=== PATIENT | female | born 1985 | race Caucasian/White ===

== ENCOUNTER 2020-10-11 13:04 | Emergency (ER) | payer OTHER ==
[2020-10-11] MEDS ORDERED: diphenhydrAMINE 50 MG/ML SDV IVPUSH ONE (13:26)
[2020-10-11] MEDS ORDERED: Prochlorperazine 10 MG/2 ML SDV IVPUSH ONE (13:26)
[2020-10-11] MEDS ORDERED: Ketorolac 30 MG/ML SDV IVPUSH ONE (13:26)
[2020-10-11] MEDS ORDERED: Sodium Chloride 0.9% 10 ML Syringe FLUSH PRN (13:26)
--- NOTE | 2020-10-11 13:42 | EDM.PDOC ---
ED HPI GENERAL MEDICAL PROBLEM - General Chief Complaint: Headache Stated Complaint: MIGRAINE X 1 DAY Time Seen by Provider: 10/11/20 13:18 Source of Information: Reports: Patient History Limitations: Reports: No Limitations - History of Present Illness INITIAL COMMENTS - FREE TEXT/NARRATIVE: The patient presents with a headache. She has a history of migraines. This started on Monday and has not gotten any better. She says it has been awhile since her headache has been this bad. She has some nausea. She has no fever, chills, cough, chest pain, shortness of breath, abdominal pain, numbness or weakness. Onset: Gradual Duration: Day(s): Location: Reports: Head Quality: Reports: Sharp Severity: Severe Improves with: Reports: None Worsens with: Reports: None Associated Symptoms: Reports: Headaches, Nausea/Vomiting. Denies: Chest Pain, Cough, Fever/Chills, Shortness of Breath Headache Pain Score (Numeric/FACES): 6 - Related Data Allergies Allergy/AdvReac Type Severity Reaction Status Date / Time No Known Allergies Allergy Verified 10/11/20 13:16 Home Meds: Home Meds . [No Known Home Meds] 10/11/20 [History] Past Medical History - Past Health History Medical/Surgical History: Denies Medical/Surgical History Social & Family History - Tobacco Use Tobacco Use Status *Q: Never Tobacco User Second Hand Smoke Exposure: No - Caffeine Use Caffeine Use: Reports: Coffee, Soda - Recreational Drug Use Recreational Drug Use: No ED ROS GENERAL - Review of Systems Review Of Systems: See Below Constitutional: Reports: No Symptoms HEENT: Reports: No Symptoms Respiratory: Reports: No Symptoms Cardiovascular: Reports: No Symptoms Endocrine: Reports: No Symptoms GI/Abdominal: Reports: Nausea. Denies: Abdominal Pain, Vomiting : Reports: No Symptoms Musculoskeletal: Reports: No Symptoms Skin: Reports: No Symptoms Neurological: Reports: Headache - Physical Exam Exam: See Below Exam Limited By: No Limitations General Appearance: Alert, No Apparent Distress Ears: Normal External Exam Nose: Normal Inspection Head Exam: Atraumatic, Normocephalic Neck: Normal Inspection Respiratory/Chest: No Respiratory Distress, Lungs Clear, Normal Breath Sounds Cardiovascular: Regular Rate, Rhythm, No Edema, No Murmur GI/Abdominal: Soft, Non-Tender, No Organomegaly, No Mass Neuro Exam (Abbreviated): Alert, Oriented, No Motor/Sensory Deficits Course - Vital Signs Last Recorded V/S: Last Vital Signs Temp 97.0 F 10/11/20 13:15 Pulse 72 10/11/20 13:15 Resp 20 10/11/20 13:15 BP 152/86 H 10/11/20 13:15 Pulse Ox 99 10/11/20 13:15 - Orders/Labs/Meds Orders: Active Orders 24 hr Category Date Time Status Peripheral IV Care [RC] . DIRECTED Care 10/11/20 13:26 Active Sodium Chloride 0.9% [Saline Flush] Med 10/11/20 13:26 Active 10 ml FLUSH ASDIRECTED PRN Peripheral IV Insertion Adult [OM.PC] Routine Oth 10/11/20 13:26 Ordered Medication Orders Sodium Chloride (Sodium Chloride 0.9% 10 Ml Syringe) 10 ml FLUSH ASDIRECTED PRN PRN Reason: Keep Vein Open Last Admin: 10/11/20 13:33 Dose: 10 ml Documented by: CHRIS Meds: Medications Generic Name Dose Route Start Last Admin Trade Name Freq PRN Reason Stop Dose Admin Sodium Chloride 10 ml 10/11/20 13:26 10/11/20 13:33 Sodium Chloride 0.9% 10 Ml Syringe FLUSH 10 ml ASDIRECTED PRN Administration Keep Vein Open Discontinued Medications Generic Name Dose Route Start Last Admin Trade Name Freq PRN Reason Stop Dose Admin Diphenhydramine HCl 50 mg 10/11/20 13:26 10/11/20 13:33 Diphenhydramine 50 Mg/Ml Sdv IVPUSH 10/11/20 13:27 50 mg ONETIME ONE Administration Ketorolac Tromethamine 30 mg 10/11/20 13:26 10/11/20 13:33 Ketorolac 30 Mg/Ml Sdv IVPUSH 10/11/20 13:27 30 mg ONETIME ONE Administration Prochlorperazine Edisylate 10 mg 10/11/20 13:26 10/11/20 13:33 Prochlorperazine 10 Mg/2 Ml Sdv IVPUSH 10/11/20 13:27 10 mg ONETIME ONE Administration - Re-Assessments/Exams Free Text/Narrative Re-Assessment/Exam: 10/11/20 13:43 I ordered an IV saline lock, compazine 10mg IV, toradol 30mg IV and benadryl 50mg IV. 10/11/20 14:51 She feels better. I will discharge her home. Departure - Departure Time of Disposition: 14:55 Disposition: Home, Self-Care 01 Condition: Good Clinical Impression: Migraine - Discharge Information *PRESCRIPTION DRUG MONITORING PROGRAM REVIEWED*: Not Applicable *COPY OF PRESCRIPTION DRUG MONITORING REPORT IN PATIENT ANDREW: Not Applicable Referrals: PCP,None [Primary Care Provider] - Forms: ED Department Discharge Additional Instructions: Go home and rest. Take tylenol or motrin as needed for pain. Please return if you are worse. Sepsis Event Note (ED) - Evaluation Sepsis Screening Result: No Definite Risk - Focused Exam Vital Signs: Vital Signs Temp Pulse Resp BP Pulse Ox 10/11/20 13:15 97.0 F 72 20 152/86 H 99 - My Orders Last 24 Hours: My Active Orders 10/11/20 13:26 Peripheral IV Care [RC] . DIRECTED Sodium Chloride 0.9% [Saline Flush] 10 ml FLUSH ASDIRECTED PRN Peripheral IV Insertion Adult [OM.PC] Routine - Assessment/Plan Last 24 Hours: My Active Orders 10/11/20 13:26 Peripheral IV Care [RC] . DIRECTED Sodium Chloride 0.9% [Saline Flush] 10 ml FLUSH ASDIRECTED PRN Peripheral IV Insertion Adult [OM.PC] Routine
== END 2020-10-11 15:07 | disposition home or self-care (01) ==
LOC: JD.ED 13:04
DX: G43.909 Migraine, unspecified, not intractable, without status migrainosus (principal)
CPT/HCPCS: 96374; 96375; 99283; J0780; J1200; J1885

== ENCOUNTER 2021-12-28 07:10 | Inpatient (IN) | payer OTHER ==
[~2021-12-28 07:10] MED LIST: Bupivacaine 0.25% 10 ML SDV ONE
[2021-12-28] MEDS ORDERED: Sodium Chloride 0.9% 10 ML Syringe FLUSH PRN (07:13)
[2021-12-28] MEDS ORDERED: Ondansetron 4 MG/2 ML SDV IVPUSH PRN (07:13)
[2021-12-28] MEDS ORDERED: Nalbuphine HCl 10 MG/ 1ML Amp IVPUSH PRN (07:13)
[2021-12-28] MEDS ORDERED: Oxytocin/Lactated Ringers 10 UNIT/1,000 ML BAG IV SCH ×2 (07:15)
[2021-12-28] MEDS ORDERED: Ampicillin 2 GM in Sodium Chloride 0.9% 100 ML IV ONE (08:00)
[2021-12-28] MEDS: Lactated Ringers 1,000 ML IV SCH ×5 (08:04→20:00)
[2021-12-28] MEDS ORDERED: Sodium Chloride 0.9% 10 ML Syringe FLUSH SCH (09:00)
[2021-12-28] MEDS: Ampicillin 1 GM in Sodium Chloride 0.9% 100 ML IV SCH ×3 (12:07→19:58)
[2021-12-28] MEDS ORDERED: fentaNYL 100 MCG/2 ML SDV EPIDUR PRN (14:02)
[2021-12-28] MEDS ORDERED: diphenhydrAMINE 50 MG/ML SDV IVPUSH PRN (14:02)
[2021-12-28] MEDS ORDERED: ePHEDrine 50 MG/ML SDV IVPUSH PRN (14:02)
[2021-12-28] MEDS ORDERED: Bupivacaine/fentaNYL/NS 100 ML Bag EPIDUR PRN (14:02)
[2021-12-28] MEDS ORDERED: Benzocaine/Menthol 20%-0.5% Spray 78 GM Cannister TOP PRN (22:28)
[2021-12-28] MEDS ORDERED: Docusate Sodium 100 MG Cap PO PRN (22:28)
[2021-12-28] MEDS ORDERED: Witch Hazel Medicated Pads 40/Jar TOP PRN (22:28)
[2021-12-28] MEDS: Ibuprofen 600 MG Tab PO PRN (22:44)
[2021-12-29] MEDS: Acetaminophen 325 MG Tab PO PRN ×2 (02:27→17:51)
[2021-12-29] MEDS: Ibuprofen 600 MG Tab PO PRN ×2 (07:51→17:05)
[2021-12-30] MEDS: Ibuprofen 600 MG Tab PO PRN (02:40)
[2021-12-30] MEDS: Acetaminophen 325 MG Tab PO PRN (02:41)
[2021-12-30] MEDS ORDERED: Measles, Mumps & Rubella Vaccine 0.5 ML SDV SUBCUT ONE (09:00)
== END 2021-12-30 11:32 | disposition home or self-care (01) | DRG 807 ==
LOC: JD.OBCHECK 07:10 → JD.OB 07:13 → JD.OBCHECK 07:14 → OBSVTOIN 21:04 → JD.OB 21:05
PROVIDERS: ADMIT Obstetrics & Gynecology; ATTEND Obstetrics & Gynecology
PROC: 10E0XZZ Delivery of Products of Conception, External Approach (ICD-10-PCS; principal; 2021-12-28)
PROC: 0KQM0ZZ Repair Perineum Muscle, Open Approach (ICD-10-PCS; 2021-12-28)
PROC: 10907ZC Drainage of Amniotic Fluid, Therapeutic from Products of Conception, Via Natural or Artificial Opening (ICD-10-PCS; 2021-12-28)
PROC: 3E033VJ Introduction of Other Hormone into Peripheral Vein, Percutaneous Approach (ICD-10-PCS; 2021-12-28)
PROC: 3E0234Z Introduction of Serum, Toxoid and Vaccine into Muscle, Percutaneous Approach (ICD-10-PCS; 2021-12-30)
DX: O99.824 Streptococcus B carrier state complicating childbirth (principal); Z37.0 Single live birth; O70.1 Second degree perineal laceration during delivery; Z3A.39 39 weeks gestation of pregnancy; Z23 Encounter for immunization
CPT/HCPCS: 36415; 51702; 59025; 59409; 85027; 86592; 86850; 86900; 86901; 90707; A9270-GY; J0290; J2405; J2590; J3010; J3490; J7120

== ENCOUNTER 2024-08-26 05:01 | Inpatient (IN) | payer OTHER ==
[~2024-08-26 05:01] MED LIST changes: -Bupivacaine 0.25% 10 ML SDV ONE; +Sodium Chloride 0.9% 10 ML Syringe FLUSH PRN
[2024-08-26 06:03] LABS: BASOPHILS PERCENT AUTO 0.3 % (0.0-1.0); EOSINOPHILS ABSOLUTE AUTO 0.1 K/mm3 (0.0-0.4); EOSINOPHILS PERCENT AUTO 0.8 % (0.0-6.0); HEMATOCRIT 34.9 % (37.0-47.0); HEMOGLOBIN 11.7 gm/dl (12.0-16.0); IMMATURE GRAN PERCENT AUTO 1.9 % (0.0-0.4); LYMPHOCYTES ABSOLUTE AUTO 2.5 K/mm3 (1.0-4.8); LYMPHOCYTES PERCENT AUTO 23.2 % (24.0-44.0); MEAN CORPUSCULAR HEMOGLOBIN 30.4 pg (28.0-32.0); MEAN CORPUSCULAR HGB CONC 33.5 g/dl (32.0-36.0); MEAN CORPUSCULAR VOLUME 90.6 fl (83.0-99.0); MEAN PLATELET VOLUME 9.3 fl (9.4-12.3); MONOCYTES ABSOLUTE AUTO 0.9 K/mm3 (0.0-0.8); MONOCYTES PERCENT AUTO 8.6 % (0.0-8.0); NEUTROPHILS PERCENT AUTO 65.2 % (41.0-71.0); PLATELET COUNT,PLT 369 K/mm3 (150-400); RED BLOOD CELL COUNT 3.85 M/mm3 (4.10-5.30); WHITE BLOOD CELL COUNT,WBC 10.77 K/mm3 (3.9-11.3)
[2024-08-26] MEDS: Lactated Ringers 1,000 ML IV SCH ×2 (06:40→07:11)
[2024-08-26] MEDS ORDERED: Ketorolac 30 MG/ML SDV ONE (06:54)
[2024-08-26] MEDS ORDERED: fentaNYL 100 MCG/2 ML SDV ONE (06:54)
[2024-08-26] MEDS ORDERED: Ondansetron 4 MG/2 ML SDV ONE (06:54)
[2024-08-26] MEDS ORDERED: Morphine PF 10 MG/10 ML SDV ONE (06:54)
[2024-08-26] MEDS ORDERED: Ropivacaine 0.5% 5 MG/ML 30 ML SDV ONE ×2 (06:54→06:55)
[2024-08-26] MEDS ORDERED: Oxytocin 10 Units/1 ML SDV ONE (06:54)
[2024-08-26] MEDS ORDERED: ceFAZolin 2 GM Vial ONE (06:55)
[2024-08-26] MEDS ORDERED: EPINEPHrine 1 MG/ML SDV ONE (06:58)
[2024-08-26] MEDS ORDERED: Bupivacaine 0.25% 10 ML SDV ONE (06:59)
[2024-08-26] MEDS: Citric Acid/Sodium Citrate Solution 30 ML Cup PO ONE (07:12)
[2024-08-26] MEDS: Metoclopramide 10 MG/2 ML SDV IVPUSH ONE (07:12)
[2024-08-26] MEDS ORDERED: Phenylephrine 1% 10 MG/ML SDV ONE (07:19)
[2024-08-26 07:23] LABS: ALANINE AMINOTRANSFERASE,ALT 14 U/L (14-59); ASPARTATE AMNIOTRANSFERASE,AST 14 U/L (15-37); CREATININE 0.6 mg/dL (0.55-1.02); ESTIMATED GFR 117 mL/min (>60)
[2024-08-26] MEDS ORDERED: Oxytocin/0.9 % Sodium Chloride 30 UNIT/500 ML BAG IV SCH (07:30)
[2024-08-26] MEDS ORDERED: Carboprost Tromethamine 250 MCG/1 mL Vial ONE (07:33)
[2024-08-26] MEDS ORDERED: Methylergonovine 0.2 MG/1 ML Amp ONE (07:33)
[2024-08-26] MEDS ORDERED: Tranexamic Acid 1,000 MG/10 ML Vial ONE (07:36)
[2024-08-26] MEDS ORDERED: HYDROmorphone 0.5 MG/0.5 ML Syringe IVPUSH PRN (08:36)
[2024-08-26] MEDS ORDERED: Ondansetron 4 MG/2 ML SDV IVPUSH PRN (08:36)
[2024-08-26] MEDS ORDERED: fentaNYL 100 MCG/2 ML SDV IVPUSH PRN (08:36)
[2024-08-26] MEDS ORDERED: Naloxone 0.4 MG/ML SDV IVPUSH PRN (09:25)
[2024-08-26] MEDS ORDERED: diphenhydrAMINE 50 MG/ML SDV IVPUSH PRN (09:25)
[2024-08-26] MEDS ORDERED: ePHEDrine 50 MG/ML SDV IVPUSH PRN (09:25)
[2024-08-26] MEDS ORDERED: Ondansetron 4 MG/2 ML SDV IV PRN (09:25)
[2024-08-26] MEDS: Dextrose 5%-Lactated Ringers 1,000 ML IV SCH (10:12)
[2024-08-26] MEDS: Sodium Chloride 0.9% 10 ML Syringe FLUSH SCH (10:21)
[2024-08-26] MEDS: ceFAZolin 2 GM in Sodium Chloride 0.9% 50 ML IV ONE (10:22)
[2024-08-26 10:43] LABS: CREATININE,URINE RAND 125.1 mg/dL (30.0-125.0); PROTEIN,URINE RANDOM 27.9 mg/dL (0.0-11.8)
[2024-08-26] MEDS: Ketorolac 30 MG/ML SDV IVPUSH SCH (14:22)
[2024-08-26] MEDS: FLUoxetine 20 MG Cap PO SCH (15:43)
[2024-08-26] MEDS: Docusate Sodium 100 MG Cap PO PRN (20:28)
[2024-08-27] MEDS: oxyCODONE 5 MG Tab PO PRN (01:18)
[2024-08-27] MEDS: Acetaminophen 325 MG Tab PO PRN (05:03)
[2024-08-27 05:29] LABS: HEMATOCRIT 28.1 % (37.0-47.0); HEMOGLOBIN 9.3 gm/dl (12.0-16.0); MEAN CORPUSCULAR HEMOGLOBIN 30.8 pg (28.0-32.0); MEAN CORPUSCULAR HGB CONC 33.1 g/dl (32.0-36.0); MEAN PLATELET VOLUME 9.6 fl (9.4-12.3); PLATELET COUNT,PLT 318 K/mm3 (150-400); RED BLOOD CELL COUNT 3.02 M/mm3 (4.10-5.30); WHITE BLOOD CELL COUNT,WBC 17.21 K/mm3 (3.9-11.3)
[2024-08-27] MEDS: Ibuprofen 600 MG Tab PO SCH (08:19)
[2024-08-28] MEDS: Measles, Mumps & Rubella Vaccine 0.5 ML SDV SUBCUT ONE (20:22)
== END 2024-08-28 20:30 | disposition home or self-care (01) | DRG 787 ==
LOC: JD.OB 05:01 → JD.MS 08-27 10:37 → JD.OB 08-27 10:46
PROVIDERS: ADMIT Obstetrics & Gynecology; ATTEND Obstetrics & Gynecology
PROC: 10D00Z1 Extraction of Products of Conception, Low, Open Approach (ICD-10-PCS; principal; 2024-08-26 07:30)
PROC: 3E0234Z Introduction of Serum, Toxoid and Vaccine into Muscle, Percutaneous Approach (ICD-10-PCS; principal; 2024-08-26 07:30)
DX: O34.211 Maternal care for low transverse scar from previous cesarean delivery (principal); O44.03 Complete placenta previa NOS or without hemorrhage, third trimester; Z3A.36 36 weeks gestation of pregnancy; Z37.0 Single live birth; Z79.899 Other long term (current) drug therapy; Z23 Encounter for immunization
CPT/HCPCS: 36415; 59025; 82565; 82570; 84156; 84450; 84460; 85025; 85027; 86592; 86850; 86900; 86901; 90471; 90707; A9270-GY; J0171; J0665; J0690; J1885; J2210; J2274; J2371; J2405; J2590; J2765; J2795; J3010; J3490; J7120; J7121; J7999